=== PATIENT | male | born 1940 | race Native Hawaiian/Other Pacific Islander ===

== ENCOUNTER → 2017-11-24 | Outpatient (CLI) | payer MEDICARE, OTHER ==
[~2017-11-24] MED LIST: ASPIR 8181 MG PO; CRESTOR5 MG PO; HYTRIN PO; PRILOSEC20 M1 PO
== END | disposition home or self-care (01) ==
LOC: RAD 11-23 16:37
DX: Z01.818 Encounter for other preprocedural examination (principal)

== ENCOUNTER → 2018-06-04 | Day surgery (SDC) | payer MEDICARE ==
[~2018-06-04] VITALS: Ht 165.1 cm; Wt 76.2 kg
[~2018-06-04] MED LIST changes: +CLARITIN10 MG PO; +JANUMET 50-1,01 EACH PO; +Synthroid,Levo50 MCG PO
--- NOTE | ~2018-06-04 | PROC NOTE ---
[place], [place] PROCEDURE NOTE NAME: [id number] UNIT #: [id number] ROOM: DOCTOR: ARNEL COOMBS MD BIRTHDATE: [birth year] DOS: 06/04/2018 PREOPERATIVE DIAGNOSIS: Right temporal scalp lesion. POSTOPERATIVE DIAGNOSIS: Right temporal scalp lesion. PROCEDURE: Excision of right temporal scalp lesion. SURGEON: Arnel Coombs MD SUPERVISOR GARAGE: KANNAN. ANESTHESIA: Local (1% lidocaine with epinephrine). INDICATIONS: This is a 72-year-old gentleman with a longstanding history of a scalp lesion on the right temporal region who wants this lesion removed. He is here for the above-mentioned procedure. The procedure and its complications were explained to the patient in detail preoperatively. Complications that were discussed included but were not limited to bleeding, hematoma formation, infection, and prolonged pain. He agreed to proceed. DESCRIPTION OF PROCEDURE: After identifying the patient, the patient was brought to the operating suite and laid in the supine position. After time-out procedure was called, the parts were painted and draped in the usual sterile fashion. An elliptical incision was marked which was then infiltrated with 1% lidocaine with epinephrine. Incision was made in the skin lesion was excised in its entirety and sent for histopathological diagnosis, after it was adequately marked (long stitch for lateral and short stitch for superior). Hemostasis was achieved with the help of electrocautery. The subcutaneous tissue was approximated with the help of 3-0 Vicryl in an interrupted fashion and the skin edges were approximated with the help of 4-0 Vicryl in a subcuticular running fashion. Dressing was placed. The patient tolerated the procedure well and brought back to the recovery room in stable fashion. There were no complications. Dr. Arnel Coombs, the attending surgeon, was present throughout the operating case. Arnel Coombs MD CM:PROCNOTE:PROCEDURE NOTE [id number] ARNEL COOMBS MD
[2018-06-04 11:05] VITALS: BP 139/71
[2018-06-04 12:00] VITALS: BP 159/83
[2018-06-04 12:10] VITALS: BP 150/81
[2018-06-04 12:20] VITALS: BP 160/79
[2018-06-04 12:25] VITALS: BP 163/82
== END | disposition home or self-care (01) ==
LOC: SDC 05-30 08:45
DX: L82.1 Other seborrheic keratosis (principal); E11.9 Type 2 diabetes mellitus without complications; M19.90 Unspecified osteoarthritis, unspecified site; E78.00 Pure hypercholesterolemia, unspecified; Z98.890 Other specified postprocedural states; Z83.3 Family history of diabetes mellitus; Z82.49 Family history of ischemic heart disease and other diseases of the circulatory system; Z79.899 Other long term (current) drug therapy

== ENCOUNTER → 2019-03-04 | Outpatient (CLI) | payer MEDICARE | END | disposition home or self-care (01) | LOC: US 10:50 | DX: M71.22 Synovial cyst of popliteal space [Baker], left knee (principal); M85.88 Other specified disorders of bone density and structure, other site; M17.0 Bilateral primary osteoarthritis of knee; M79.605 Pain in left leg ==